=== PATIENT | male | born 1940 | race Caucasian/White ===

== ENCOUNTER 2018-01-10 05:42 | Inpatient (IN) ==
[2017-12-30 09:25] LABS: Apearance,Urine CLEAR (Clear); Bilirubin,Urine Negative (Negative); Blood, Urine Negative (Negative); Glucose,Urine (UA) 50 mg/dL (Negative); Hyaline Casts,Urine 6 /LPF (0-3); Ketones,Urine Negative (Negative); Mucus,Urine Occasional /LPF (Occasional); Nitrite,Urine Negative (Negative); Protein,Urine Negative; RBC,Urine 1 /HPF (0-4); Squamous Epithelial Cell,Urine Occasional /HPF (0-10); Urine Color Yellow (Yellow); Urine Specific Gravity 1.026 (1.001-1.035); Urine Urobilinogen < 2.0 EU/DL (0.2-1.0); WBC,Urine 1 /HPF (0-6)
[2017-12-30 09:26] LABS: Basophils % 0.4 % (0.0-0.8); Eosinophils # 0.2 10*3/uL (0.0-0.87); Eosinophils % 3.9 % (0.00-10.9); Hematocrit 42.8 VOL% (42.0-52.0); Hemoglobin 14.1 GM/DL (14.0-18.0); Immature Granulocytes % 0.4 %; Immature Granulocytes Absolute 0.02 #; Lymphocytes # 1.8 10*3/uL (1.4-4.0); Lymphocytes % 33.5 % (21.2-54.2); Mean Corpuscular HGB Conc 32.9 GM/DL (32-36); Mean Corpuscular Hemoglobin 32 PG (27-34); Mean Corpuscular Volume 97.3 FL (87-102); Mean Platelet Volume 10.7 FL (9.6-12.0); Monocytes # 0.5 10*3/uL (0.11-0.8); Monocytes % 8.8 % (1.7-12.7); Neutrophils # 2.9 10*3/uL (1.4-7.4); Platelet Count 132 T/CUMM (130-400); Red Cell Distribution Width 11.9 % (9.3-17.3); White Blood Count 5.4 T/CUMM (4-12)
[2017-12-30 09:34] LABS: PT Patient Result 10.4 SECS; Partial Thromboplastin Time 25.6 SECS (0-40)
[2017-12-30 09:55] LABS: Albumin 3.6 G/DL (3.4-5.0); Bilirubin,Total 0.6 MG/DL (0.2-1.0); Calcium 9.4 MG/DL (8.5-10.1); Osmolality,Calculated 277.7 MOS/KG (273-304); Potassium 4.3 MMOL/L (3.5-5.1); Total Protein 6.9 G/DL (6.4-8.3)
[2018-01-10] MEDS ORDERED: ACETAMINOPHEN 500 MG TABLET PO ONE (06:00)
[2018-01-10] MEDS ORDERED: VANCOMYCIN INJ 1,000 MG in SODIUM CHLORIDE 0.9% 250 ML IV ONE (06:00)
[2018-01-10] MEDS ORDERED: FAMOTIDINE 20 MG TABLET PO ONE (06:00)
[2018-01-10] MEDS ORDERED: GABAPENTIN 400 MG CAPSULE PO ONE ×2 (06:00→09:54)
[2018-01-10] MEDS ORDERED: CLINDAMYCIN INJ 900 MG in PREMIX 1 EACH IV ONE (06:00)
[2018-01-10] MEDS ORDERED: VANCOMYCIN 1,000 MG VIAL ONE (06:14)
[2018-01-10] MEDS ORDERED: ACETAMINOPHEN 500 MG TABLET ONE (06:15)
[2018-01-10] MEDS ORDERED: FAMOTIDINE 20 MG TABLET ONE (06:15)
[2018-01-10] MEDS ORDERED: GABAPENTIN 400 MG CAPSULE ONE ×2 (06:15→09:48)
[2018-01-10] MEDS ORDERED: CLINDAMYCIN INJ 50 ML IV ONE (06:15)
[2018-01-10] MEDS ORDERED: DIAZEPAM 5 MG TABLET PO ONE (06:30)
[2018-01-10] MEDS: LACTATED RINGERS 1,000 ML IV SCH ×2 (06:30→12:45)
[2018-01-10] MEDS ORDERED: TRANEXAMIC ACID 1,000 MG/10 ML VIAL ONE (06:40)
[2018-01-10] MEDS ORDERED: BUPIVACAINE SPINAL 0.75% 2 ML AMP SPINAL ONE (07:08)
[2018-01-10] MEDS ORDERED: BISACODYL 10 MG SUPP RECTAL PRN (07:25)
[2018-01-10] MEDS ORDERED: PROMETHAZINE 25 MG/1 ML VIAL IM PRN (07:25)
[2018-01-10] MEDS ORDERED: TEMAZEPAM 7.5 MG CAPSULE PO PRN (07:25)
[2018-01-10] MEDS ORDERED: NALOXONE 0.4 MG/ML VIAL IV PRN (07:25)
[2018-01-10] MEDS ORDERED: LACTULOSE 20 GM/30 ML UDCUP PO PRN (07:25)
[2018-01-10] MEDS ORDERED: MORPHINE 4 MG/1 ML VIAL IV PRN (07:25)
[2018-01-10] MEDS ORDERED: diphenhydrAMINE CAP 25 MG CAPSULE PO PRN (07:25)
[2018-01-10] MEDS ORDERED: ONDANSETRON 4 MG/2 ML VIAL IV PRN ×2 (07:25→09:24)
[2018-01-10] MEDS ORDERED: MAGNESIUM HYDROXIDE SUSP 30 ML UDCUP PO PRN (07:25)
[2018-01-10] MEDS ORDERED: TYLENOL ARTHRITIS 650 MG PO PRN (07:30)
[2018-01-10] MEDS ORDERED: ROPIVACAINE 0.5% 30 ML VIAL ONE (07:57)
[2018-01-10] MEDS ORDERED: ACETAMINOPHEN 1,000 MG/100 ML VIAL IV ONE ×2 (08:18→09:20)
[2018-01-10] MEDS ORDERED: SIMVASTATIN 40 MG TABLET PO SCH (09:00)
[2018-01-10] MEDS ORDERED: MORPHINE 10 MG/1 ML VIAL ONE (09:13)
[2018-01-10] MEDS ORDERED: ONDANSETRON 4 MG/2 ML VIAL ONE ×2 (09:14→09:20)
[2018-01-10] MEDS: MORPHINE 10 MG/1 ML VIAL IV PRN ×4 (09:15→09:36)
[2018-01-10] MEDS ORDERED: PROPOFOL 200 MG/20 ML VIAL IV ONE (09:19)
[2018-01-10] MEDS ORDERED: LIDOCAINE 1% 5 ML VIAL ONE (09:19)
[2018-01-10] MEDS ORDERED: SEVOFLURANE 1 UNIT/15 MINUTE INH ONE (09:19)
[2018-01-10] MEDS ORDERED: fentaNYL 100 MCG/2 ML VIAL ONE (09:20)
[2018-01-10] MEDS ORDERED: SODIUM CHLORIDE 0.9% 100 ML IV ONE (09:20)
[2018-01-10] MEDS ORDERED: LACTATED RINGERS 1,000 ML IV ONE (09:20)
[2018-01-10] MEDS ORDERED: MIDAZOLAM 2 MG/2 ML VIAL ONE (09:20)
[2018-01-10] MEDS ORDERED: ePHEDrine 50 MG/ML AMP ONE (09:20)
[2018-01-10] MEDS ORDERED: NIACIN ER 500 MG TABLET PO SCH (10:30)
[2018-01-10] MEDS: ASPIRIN CHEW 81 MG TABLET PO SCH (11:30)
[2018-01-10] MEDS: OMEGA 3 ACID ETHYL ESTERS 1 GM CAPSULE PO SCH (11:30)
[2018-01-10] MEDS: FLUTICASONE 50 MCG NASAL SPRAY 16 GM BOTTLE BOTH NARES SCH (11:30)
[2018-01-10] MEDS: MORPHINE PCA 30 MG/30 ML SYRINGE IV SCH (11:30)
[2018-01-10] MEDS: IRON (CARBONYL) 45 MG TABLET PO SCH (11:30)
[2018-01-10] MEDS: RAMIPRIL 5 MG CAPSULE PO SCH (11:30)
[2018-01-10] MEDS: DOCUSATE SODIUM 100 MG CAPSULE PO SCH ×2 (11:30→20:39)
[2018-01-10] MEDS: MORPHINE 4 MG/1 ML VIAL IV PRN ×2 (12:50→22:42)
[2018-01-10] MEDS: CLINDAMYCIN INJ 900 MG in PREMIX 1 EACH IV SCH ×2 (15:35→22:36)
[2018-01-10] MEDS: FONDAPARINUX 2.5 MG/0.5 ML SYRINGE SUBCUT SCH (17:50)
[2018-01-10] MEDS: MULTIVITAMIN (OCUVITE) TABLET PO SCH (19:59)
[2018-01-10] MEDS: ZALEPLON 5 MG CAPSULE PO SCH (20:38)
[2018-01-10] MEDS: SIMVASTATIN 40 MG TABLET PO SCH (21:37)
[2018-01-10] MEDS: NIACIN ER 500 MG TABLET PO SCH (21:37)
[2018-01-11 05:43] LABS: Basophils % 0.2 % (0.0-0.8); Eosinophils % 0.3 % (0.00-10.9); Hematocrit 35.7 VOL% (42.0-52.0); Hemoglobin 12.3 GM/DL (14.0-18.0); Immature Granulocytes % 0.5 %; Immature Granulocytes Absolute 0.04 #; Lymphocytes # 0.7 10*3/uL (1.4-4.0); Mean Corpuscular HGB Conc 34.5 GM/DL (32-36); Mean Corpuscular Hemoglobin 32 PG (27-34); Mean Corpuscular Volume 93.7 FL (87-102); Mean Platelet Volume 10.6 FL (9.6-12.0); Monocytes % 11.4 % (1.7-12.7); Neutrophils % 79.6 % (38.7-73.9); Platelet Count 146 T/CUMM (130-400); Red Blood Count 3.81 MC/CUMM (3.8-5.5); Red Cell Distribution Width 11.8 % (9.3-17.3); White Blood Count 8.8 T/CUMM (4-12)
[2018-01-11 05:57] LABS: Calcium 8.5 MG/DL (8.5-10.1); Osmolality,Calculated 273.8 MOS/KG (273-304); Potassium 3.8 MMOL/L (3.5-5.1)
[2018-01-11] MEDS: MORPHINE PCA 30 MG/30 ML SYRINGE IV SCH (07:20)
[2018-01-11] MEDS ORDERED: ACETAMINOPHEN 325 MG TABLET PO PRN (07:26)
[2018-01-11] MEDS: MORPHINE 4 MG/1 ML VIAL IV PRN ×2 (09:26→13:23)
[2018-01-11] MEDS: IRON (CARBONYL) 45 MG TABLET PO SCH (09:30)
[2018-01-11] MEDS: DOCUSATE SODIUM 100 MG CAPSULE PO SCH ×2 (09:30→21:09)
[2018-01-11] MEDS: FLUTICASONE 50 MCG NASAL SPRAY 16 GM BOTTLE BOTH NARES SCH (09:30)
[2018-01-11] MEDS: RAMIPRIL 5 MG CAPSULE PO SCH (09:30)
[2018-01-11] MEDS: ASPIRIN CHEW 81 MG TABLET PO SCH (09:30)
[2018-01-11] MEDS: MULTIVITAMIN (OCUVITE) TABLET PO SCH (09:30)
[2018-01-11] MEDS: LACTATED RINGERS 1,000 ML IV SCH (09:30)
[2018-01-11] MEDS: OMEGA 3 ACID ETHYL ESTERS 1 GM CAPSULE PO SCH (09:30)
[2018-01-11] MEDS: FONDAPARINUX 2.5 MG/0.5 ML SYRINGE SUBCUT SCH (17:30)
[2018-01-11] MEDS: SIMVASTATIN 40 MG TABLET PO SCH (21:08)
[2018-01-11] MEDS: ZALEPLON 5 MG CAPSULE PO SCH (21:08)
[2018-01-11] MEDS: NIACIN ER 500 MG TABLET PO SCH (21:08)
[2018-01-12] MEDS: LACTATED RINGERS 1,000 ML IV SCH (05:42)
[2018-01-12] MEDS: IRON (CARBONYL) 45 MG TABLET PO SCH (10:52)
[2018-01-12] MEDS: ASPIRIN CHEW 81 MG TABLET PO SCH (10:53)
[2018-01-12] MEDS: DOCUSATE SODIUM 100 MG CAPSULE PO SCH ×2 (10:53→20:13)
[2018-01-12] MEDS: RAMIPRIL 5 MG CAPSULE PO SCH (10:54)
[2018-01-12] MEDS: MULTIVITAMIN (OCUVITE) TABLET PO SCH (10:54)
[2018-01-12] MEDS: OMEGA 3 ACID ETHYL ESTERS 1 GM CAPSULE PO SCH (10:56)
[2018-01-12] MEDS: FLUTICASONE 50 MCG NASAL SPRAY 16 GM BOTTLE BOTH NARES SCH (10:57)
[2018-01-12] MEDS: FONDAPARINUX 2.5 MG/0.5 ML SYRINGE SUBCUT SCH (17:40)
[2018-01-12] MEDS: SIMVASTATIN 40 MG TABLET PO SCH (20:13)
[2018-01-12] MEDS: ZALEPLON 5 MG CAPSULE PO SCH (20:14)
[2018-01-12] MEDS: NIACIN ER 500 MG TABLET PO SCH (20:14)
[2018-01-13] MEDS: RAMIPRIL 5 MG CAPSULE PO SCH (10:26)
[2018-01-13] MEDS: ASPIRIN CHEW 81 MG TABLET PO SCH (10:26)
[2018-01-13] MEDS: MULTIVITAMIN (OCUVITE) TABLET PO SCH (10:26)
[2018-01-13] MEDS: IRON (CARBONYL) 45 MG TABLET PO SCH (10:26)
[2018-01-13] MEDS: DOCUSATE SODIUM 100 MG CAPSULE PO SCH (10:27)
[2018-01-13] MEDS: OMEGA 3 ACID ETHYL ESTERS 1 GM CAPSULE PO SCH (10:29)
[2018-01-13 11:11] VITALS: BP 94/52
== END 2018-01-13 11:46 | disposition home health service (06) | DRG 470 ==
LOC: N.OR 05:42 → N.SDSINP 05:44 → N.3E 10:10
PROVIDERS: ADMIT Orthopaedic Surgery; ATTEND Orthopaedic Surgery

== ENCOUNTER 2020-09-19 14:24 | Inpatient (IN) ==
[2020-09-19] MEDS ORDERED: LEVOFLOXACIN INJ 750 MG in PREMIX 1 EACH IV STA (15:06)
[2020-09-19] MEDS ORDERED: BISACODYL 5 MG TABLET PO PRN (16:24)
[2020-09-19] MEDS ORDERED: GLUCAGON 1 MG VIAL IM PRN (16:24)
[2020-09-19] MEDS ORDERED: SIMETHICONE CHEW 125 MG TABLET PO PRN (16:24)
[2020-09-19] MEDS ORDERED: ONDANSETRON 4 MG/2 ML VIAL IV PRN (16:24)
[2020-09-19] MEDS ORDERED: ZALEPLON 5 MG CAPSULE PO PRN (16:24)
[2020-09-19] MEDS ORDERED: hydrALAZINE 20 MG/1 ML VIAL IV PRN (16:24)
[2020-09-19] MEDS ORDERED: DEXTROSE 50% 25 GM/50 ML VIAL IV PRN (16:24)
[2020-09-19] MEDS ORDERED: AZITHROMYCIN INJ 500 MG in SODIUM CHLORIDE 0.9% 250 ML IV ONE (16:51)
[2020-09-19 17:05] LABS: Albumin 2.8 G/DL (3.4-5.0); Bilirubin,Total 0.4 MG/DL (0.2-1.0); Calcium 8.5 MG/DL (8.5-10.1); Potassium 3.6 MMOL/L (3.5-5.1); Total Protein 6.7 G/DL (6.4-8.3)
[2020-09-19] MEDS ORDERED: MAGNESIUM SULF RIDER 4 GM in PREMIX 1 EACH IV PRN (17:27)
[2020-09-19] MEDS ORDERED: MAGNESIUM SULF RIDER 2 GM in PREMIX 1 EACH IV PRN (17:27)
[2020-09-19 17:43] LABS: ABG Base Excess 2.1 MMOL/L (-2.5-2.5); ABG HCO3 24.3 MMOL/L (20-26); ABG Oxygen Saturation 93.7 % (95-100); ABG PCO2 31.1 MM HG (35-48); ABG PH 7.511 (7.35-7.45); ABG PO2 67.2 MM HG (80-95); ABG TCO2 25.3 MMOL/L (23-27)
[2020-09-19] MEDS ORDERED: MAGNESIUM SULF RIDER 2 GM in PREMIX 1 EACH IV ONE (17:43)
[2020-09-19 17:46] LABS: Basophils % 0.1 % (0.0-0.8); Hematocrit 41.6 VOL% (42.0-52.0); Immature Granulocytes % 0.7 %; Immature Granulocytes Absolute 0.06 #; Lymphocytes # 0.8 10*3/uL (1.4-4.0); Lymphocytes % 9.8 % (21.2-54.2); Mean Corpuscular HGB Conc 33.7 GM/DL (32-36); Mean Corpuscular Volume 93.5 FL (87-102); Mean Platelet Volume 10.3 FL (9.6-12.0); Monocytes % 1.6 % (1.7-12.7); Neutrophils % 87.8 % (38.7-73.9); Platelet Count 105 T/CUMM (130-400); Red Blood Count 4.45 MC/CUMM (3.8-5.5); Red Cell Distribution Width 11.8 % (9.3-17.3)
[2020-09-19] MEDS: DILTIAZEM INJ 100 MG in SODIUM CHLORIDE 0.9% 100 ML IV SCH (18:40)
[2020-09-19 19:09] LABS: Albumin 2.7 G/DL (3.4-5.0); Bilirubin,Total 0.5 MG/DL (0.2-1.0); Calcium 8.8 MG/DL (8.5-10.1); Osmolality,Calculated 272.2 MOS/KG (273-304); Potassium 3.6 MMOL/L (3.5-5.1); Total Protein 6.7 G/DL (6.4-8.3)
[2020-09-19] MEDS: METOPROLOL SUCCINATE XL 50 MG TABLET PO SCH (19:10)
[2020-09-19 19:24] LABS: ABG Base Excess 2.2 MMOL/L (-2.5-2.5); ABG HCO3 26.2 MMOL/L (20-26); ABG Oxygen Saturation 94.2 % (95-100); ABG PCO2 32.3 MM HG (35-48); ABG PH 7.493 (7.35-7.45); ABG TCO2 21.3 MMOL/L (23-27); Allen Test Positive; Pt O2 Delivery Device Other
[2020-09-19] MEDS: APIXABAN 5 MG TABLET PO SCH (21:16)
[2020-09-19 23:26] LABS: ABG Base Excess 2.1 MMOL/L (-2.5-2.5); ABG HCO3 26.2 MMOL/L (20-26); ABG Oxygen Saturation 96.2 % (95-100); ABG PCO2 31.3 MM HG (35-48); ABG PO2 78.4 MM HG (80-95); ABG TCO2 20.8 MMOL/L (23-27); Allen Test Positive; Pt O2 Delivery Device Other
[2020-09-20] MEDS: LORazepam 2 MG/1 ML VIAL IV PRN (00:12)
[2020-09-20] MEDS: VANCOMYCIN INJ 1,000 MG in SODIUM CHLORIDE 0.9% 250 ML IV SCH ×2 (01:40→14:45)
[2020-09-20] MEDS: AZTREONAM 2,000 MG in SYRINGE 1 EACH IV SCH ×2 (02:50→14:40)
[2020-09-20] MEDS: DILTIAZEM INJ 100 MG in SODIUM CHLORIDE 0.9% 100 ML IV SCH ×2 (05:08→18:35)
[2020-09-20 06:45] LABS: Basophils % 0.1 % (0.0-0.8); Hematocrit 41.4 VOL% (42.0-52.0); Immature Granulocytes % 0.9 %; Immature Granulocytes Absolute 0.08 #; Lymphocytes # 0.7 10*3/uL (1.4-4.0); Lymphocytes % 7.9 % (21.2-54.2); Mean Corpuscular HGB Conc 33.8 GM/DL (32-36); Mean Corpuscular Volume 92.2 FL (87-102); Mean Platelet Volume 10.3 FL (9.6-12.0); Monocytes % 1.6 % (1.7-12.7); Neutrophils % 89.5 % (38.7-73.9); Platelet Count 125 T/CUMM (130-400); Red Blood Count 4.49 MC/CUMM (3.8-5.5); Red Cell Distribution Width 11.5 % (9.3-17.3); White Blood Count 9.2 T/CUMM (4-12)
[2020-09-20 07:04] LABS: Platelet Estimate Normal
[2020-09-20 07:06] LABS: Risk Ratio 2.53; VLDL CHOLESTEROL 18.4 MG/DL
[2020-09-20 07:11] LABS: Albumin 2.6 G/DL (3.4-5.0); Calcium 8.7 MG/DL (8.5-10.1); Potassium 3.3 MMOL/L (3.5-5.1); Total Protein 6.8 G/DL (6.4-8.3)
[2020-09-20 07:50] LABS: Hepatitis B Core IgM Quant 0.05 Index; Hepatitis B Surface Ag Quant < 0.10 Index; Hepatitis B Surface Ag Result Non-Reactive (NonReactive); Hepatitis C Virus Ab Quant 0.06 Index; Hepatitis C Virus Ab Result Non-Reactive (NonReactive)
[2020-09-20] MEDS ORDERED: FUROSEMIDE 40 MG/4 ML VIAL IV ONE (08:31)
[2020-09-20] MEDS ORDERED: SIMVASTATIN 40 MG TABLET PO SCH (09:00)
[2020-09-20] MEDS ORDERED: POTASSIUM CHLORIDE 20 MEQ TABLET PO ONE (09:06)
[2020-09-20] MEDS: METOPROLOL SUCCINATE XL 50 MG TABLET PO SCH ×2 (10:04→21:03)
[2020-09-20] MEDS: ENALAPRIL 10 MG TABLET PO SCH (10:04)
[2020-09-20] MEDS: methylPREDNISolone SOD SUC 40 MG/1 ML VIAL IV SCH ×2 (10:05→17:03)
[2020-09-20] MEDS: APIXABAN 5 MG TABLET PO SCH ×2 (10:05→21:04)
[2020-09-20] MEDS: PANTOPRAZOLE 40 MG TABLET PO SCH (10:05)
[2020-09-20] MEDS ORDERED: ALBUTEROL INHALER 18 GM INH PRN (10:19)
[2020-09-20 11:29] LABS: ABG Base Excess 2.6 MMOL/L (-2.5-2.5); ABG HCO3 26.4 MMOL/L (20-26); ABG Oxygen Saturation 87.6 % (95-100); ABG PCO2 32.8 MM HG (35-48); ABG PH 7.493 (7.35-7.45); ABG PO2 52.1 MM HG (80-95); ABG TCO2 21.2 MMOL/L (23-27)
[2020-09-20] MEDS: FAMOTIDINE 20 MG TABLET PO SCH ×2 (12:25→21:04)
[2020-09-20] MEDS: CHOLECALCIFEROL 1,000 UNIT TABLET PO SCH (12:25)
[2020-09-20] MEDS: ASCORBIC ACID 500 MG TABLET PO SCH ×2 (12:25→21:04)
[2020-09-20] MEDS: CETIRIZINE 10 MG TABLET PO SCH (12:25)
[2020-09-20] MEDS: ZINC GLUCONATE 50 MG TABLET PO SCH (12:25)
[2020-09-20] MEDS: AZITHROMYCIN INJ 250 MG in SODIUM CHLORIDE 0.9% 250 ML IV SCH (17:05)
[2020-09-20] MEDS: ALBUTEROL INHALER 18 GM INH SCH ×2 (17:05→19:02)
[2020-09-20] MEDS ORDERED: LEVOFLOXACIN INJ 750 MG in PREMIX 1 EACH IV SCH (18:00)
[2020-09-21] MEDS: VANCOMYCIN INJ 1,000 MG in SODIUM CHLORIDE 0.9% 250 ML IV SCH ×2 (00:01→12:14)
[2020-09-21] MEDS: LORazepam 2 MG/1 ML VIAL IV PRN ×2 (00:54→07:27)
[2020-09-21] MEDS: methylPREDNISolone SOD SUC 40 MG/1 ML VIAL IV SCH ×3 (01:25→16:16)
[2020-09-21] MEDS: ALBUTEROL INHALER 18 GM INH SCH ×4 (01:25→18:25)
[2020-09-21] MEDS: AZTREONAM 2,000 MG in SYRINGE 1 EACH IV SCH ×2 (02:19→14:23)
[2020-09-21 07:23] LABS: Basophils % 0.1 % (0.0-0.8); Hematocrit 45.9 VOL% (42.0-52.0); Hemoglobin 15.3 GM/DL (14.0-18.0); Immature Granulocytes % 0.9 %; Lymphocytes # 0.4 10*3/uL (1.4-4.0); Lymphocytes % 3.9 % (21.2-54.2); Mean Corpuscular HGB Conc 33.3 GM/DL (32-36); Mean Corpuscular Volume 93.5 FL (87-102); Mean Platelet Volume 10.6 FL (9.6-12.0); Monocytes % 3.1 % (1.7-12.7); Platelet Count 169 T/CUMM (130-400); Red Blood Count 4.91 MC/CUMM (3.8-5.5); Red Cell Distribution Width 11.5 % (9.3-17.3); White Blood Count 10.6 T/CUMM (4-12)
[2020-09-21 07:49] LABS: Band Neutrophils 1 % (0-10); Lymphocytes 7 % (20-55); Platelet Estimate Adequate; Segmented Neutrophils 91 % (50-85); Total Cells Counted 100
[2020-09-21 07:52] LABS: Albumin 2.4 G/DL (3.4-5.0); Bilirubin,Total 0.6 MG/DL (0.2-1.0); Calcium 9.1 MG/DL (8.5-10.1); Osmolality,Calculated 293.5 MOS/KG (273-304); Potassium 3.9 MMOL/L (3.5-5.1); Total Protein 6.8 G/DL (6.4-8.3)
[2020-09-21] MEDS ORDERED: QUEtiapine 25 MG TABLET PO SCH ×2 (09:00→21:00)
[2020-09-21 09:23] LABS: Ferritin 2751.5 ng/ml (26-388)
[2020-09-21] MEDS: CHOLECALCIFEROL 1,000 UNIT TABLET PO SCH (09:23)
[2020-09-21] MEDS: METOPROLOL SUCCINATE XL 50 MG TABLET PO SCH ×2 (09:25→20:47)
[2020-09-21] MEDS: CETIRIZINE 10 MG TABLET PO SCH (09:26)
[2020-09-21] MEDS: PANTOPRAZOLE 40 MG TABLET PO SCH (09:26)
[2020-09-21] MEDS: ZINC GLUCONATE 50 MG TABLET PO SCH (09:26)
[2020-09-21] MEDS: ENALAPRIL 10 MG TABLET PO SCH (09:26)
[2020-09-21] MEDS: FAMOTIDINE 20 MG TABLET PO SCH ×2 (09:26→20:46)
[2020-09-21] MEDS: ASCORBIC ACID 500 MG TABLET PO SCH ×2 (09:26→20:47)
[2020-09-21] MEDS: APIXABAN 5 MG TABLET PO SCH ×2 (09:27→20:46)
[2020-09-21] MEDS: AZITHROMYCIN INJ 250 MG in SODIUM CHLORIDE 0.9% 250 ML IV SCH (16:16)
[2020-09-21] MEDS: DILTIAZEM INJ 100 MG in SODIUM CHLORIDE 0.9% 100 ML IV SCH (17:31)
[2020-09-22] MEDS ORDERED: VANCOMYCIN INJ 1,750 MG in SODIUM CHLORIDE 0.9% 500 ML IV ONE
[2020-09-22] MEDS: methylPREDNISolone SOD SUC 40 MG/1 ML VIAL IV SCH ×3 (01:09→16:25)
[2020-09-22] MEDS: ALBUTEROL INHALER 18 GM INH SCH ×4 (01:10→18:45)
[2020-09-22 01:34] LABS: Basophils % 0.1 % (0.0-0.8); Hematocrit 46.8 VOL% (42.0-52.0); Hemoglobin 15.9 GM/DL (14.0-18.0); Immature Granulocytes % 1.2 %; Immature Granulocytes Absolute 0.18 #; Lymphocytes # 0.4 10*3/uL (1.4-4.0); Lymphocytes % 2.9 % (21.2-54.2); Mean Corpuscular Volume 91.4 FL (87-102); Mean Platelet Volume 10.8 FL (9.6-12.0); Monocytes % 3.6 % (1.7-12.7); Neutrophils % 92.2 % (38.7-73.9); Platelet Count 226 T/CUMM (130-400); Red Blood Count 5.12 MC/CUMM (3.8-5.5); Red Cell Distribution Width 11.5 % (9.3-17.3); White Blood Count 15.4 T/CUMM (4-12)
[2020-09-22] MEDS ORDERED: LORazepam 2 MG/1 ML VIAL IV ONE (01:42)
[2020-09-22 01:56] LABS: Albumin 2.5 G/DL (3.4-5.0); Bilirubin,Total 0.6 MG/DL (0.2-1.0); Calcium 9.1 MG/DL (8.5-10.1); Ferritin 1893.1 ng/ml (26-388); Osmolality,Calculated 303.3 MOS/KG (273-304); Potassium 3.5 MMOL/L (3.5-5.1)
[2020-09-22 02:09] LABS: Lymphocytes 5 % (20-55); Segmented Neutrophils 90 % (50-85); Total Cells Counted 100
[2020-09-22 02:10] LABS: Platelet Estimate Normal
[2020-09-22] MEDS: AZTREONAM 2,000 MG in SYRINGE 1 EACH IV SCH ×2 (03:59→13:55)
[2020-09-22] MEDS: ASCORBIC ACID 500 MG TABLET PO SCH ×2 (09:15→20:32)
[2020-09-22] MEDS: APIXABAN 5 MG TABLET PO SCH (09:15)
[2020-09-22] MEDS: PANTOPRAZOLE 40 MG TABLET PO SCH (09:15)
[2020-09-22] MEDS: FAMOTIDINE 20 MG TABLET PO SCH ×2 (09:15→20:31)
[2020-09-22] MEDS: ENALAPRIL 10 MG TABLET PO SCH (09:15)
[2020-09-22] MEDS: METOPROLOL SUCCINATE XL 50 MG TABLET PO SCH (09:15)
[2020-09-22] MEDS: CHOLECALCIFEROL 1,000 UNIT TABLET PO SCH (09:16)
[2020-09-22] MEDS: CETIRIZINE 10 MG TABLET PO SCH (09:16)
[2020-09-22] MEDS: ZINC GLUCONATE 50 MG TABLET PO SCH (09:16)
[2020-09-22] MEDS: VANCOMYCIN INJ 1,000 MG in SODIUM CHLORIDE 0.9% 250 ML IV SCH (11:52)
[2020-09-22] MEDS ORDERED: SODIUM CHLORIDE 0.9% 250 ML IV ONE (12:20)
[2020-09-22] MEDS ORDERED: QUEtiapine 25 MG TABLET PO SCH (13:34)
[2020-09-22] MEDS: LORazepam 2 MG/1 ML VIAL IV PRN ×3 (13:53→20:31)
[2020-09-22] MEDS ORDERED: METOPROLOL TARTRATE 5 MG/5 ML VIAL IV SCH (16:00)
[2020-09-22] MEDS ORDERED: SODIUM CHLORIDE 0.9% 500 ML IV ONE (16:08)
[2020-09-22] MEDS: AZITHROMYCIN INJ 250 MG in SODIUM CHLORIDE 0.9% 250 ML IV SCH (16:25)
[2020-09-22] MEDS ORDERED: HALOPERIDOL 5 MG/ML AMP IV ONE (17:53)
[2020-09-22] MEDS ORDERED: SODIUM CHLORIDE 0.9% 1,000 ML IV PRN (18:27)
[2020-09-22] MEDS: DILTIAZEM INJ 100 MG in SODIUM CHLORIDE 0.9% 100 ML IV SCH (18:44)
[2020-09-22] MEDS ORDERED: ENOXAPARIN 80 MG/0.8 ML SYRINGE SUBCUT SCH (21:00)
[2020-09-22] MEDS ORDERED: METOPROLOL TARTRATE 5 MG/5 ML VIAL IV ONE (22:04)
[2020-09-22 22:30] LABS: ABG Base Excess 3.2 MMOL/L (-2.5-2.5); ABG HCO3 26.8 MMOL/L (20-26); ABG Oxygen Saturation 78.7 % (95-100); ABG PCO2 38.5 MM HG (35-48); ABG PH 7.455 (7.35-7.45); ABG PO2 46.6 MM HG (80-95); ABG TCO2 23.1 MMOL/L (23-27)
[2020-09-23] MEDS: VANCOMYCIN INJ 1,000 MG in SODIUM CHLORIDE 0.9% 250 ML IV SCH ×3 (00:37→23:47)
[2020-09-23] MEDS: ALBUTEROL INHALER 18 GM INH SCH ×4 (00:37→21:18)
[2020-09-23] MEDS: methylPREDNISolone SOD SUC 40 MG/1 ML VIAL IV SCH ×3 (00:38→17:50)
[2020-09-23] MEDS: LORazepam 2 MG/1 ML VIAL IV PRN ×2 (00:42→21:14)
[2020-09-23] MEDS: AZTREONAM 2,000 MG in SYRINGE 1 EACH IV SCH ×2 (02:50→14:59)
[2020-09-23 05:53] LABS: Basophils # 0.1 10*3/uL (0.0-0.2); Basophils % 0.3 % (0.0-0.8); Eosinophils % 0.2 % (0.00-10.9); Hematocrit 50.2 VOL% (42.0-52.0); Hemoglobin 15.8 GM/DL (14.0-18.0); Immature Granulocytes % 1.9 %; Immature Granulocytes Absolute 0.28 #; Lymphocytes # 0.4 10*3/uL (1.4-4.0); Lymphocytes % 2.5 % (21.2-54.2); Mean Corpuscular HGB Conc 31.5 GM/DL (32-36); Mean Corpuscular Volume 100.4 FL (87-102); Mean Platelet Volume 11.5 FL (9.6-12.0); Monocytes % 4.7 % (1.7-12.7); Neutrophils % 90.4 % (38.7-73.9); Platelet Count 211 T/CUMM (130-400); Red Cell Distribution Width 11.9 % (9.3-17.3)
[2020-09-23 06:07] LABS: Albumin 2.4 G/DL (3.4-5.0); Bilirubin,Total 0.8 MG/DL (0.2-1.0); Ferritin 1266.2 ng/ml (26-388); Potassium 3.8 MMOL/L (3.5-5.1)
[2020-09-23 06:31] LABS: Lymphocytes 2 % (20-55); Segmented Neutrophils 94 % (50-85); Total Cells Counted 100
[2020-09-23 06:32] LABS: Hypochromasia Slight; Microcytosis 1+
[2020-09-23] MEDS ORDERED: QUEtiapine 25 MG TABLET PO SCH (09:00)
[2020-09-23] MEDS: FAMOTIDINE 20 MG TABLET PO SCH ×2 (10:03→21:18)
[2020-09-23] MEDS: CHOLECALCIFEROL 1,000 UNIT TABLET PO SCH (10:04)
[2020-09-23] MEDS: CETIRIZINE 10 MG TABLET PO SCH (10:04)
[2020-09-23] MEDS: ZINC GLUCONATE 50 MG TABLET PO SCH (10:04)
[2020-09-23] MEDS: ENALAPRIL 10 MG TABLET PO SCH (10:04)
[2020-09-23] MEDS: ASCORBIC ACID 500 MG TABLET PO SCH ×2 (10:04→21:17)
[2020-09-23] MEDS: PANTOPRAZOLE 40 MG TABLET PO SCH (10:04)
[2020-09-23] MEDS ORDERED: SODIUM CHLORIDE 0.45% 500 ML IV ONE (11:15)
[2020-09-23] MEDS: ENOXAPARIN 80 MG/0.8 ML SYRINGE SUBCUT SCH ×2 (11:48→22:51)
[2020-09-23] MEDS ORDERED: REMDESIVIR 200 MG in SODIUM CHLORIDE 0.9% 210 ML IV ONE (14:30)
[2020-09-23] MEDS: AZITHROMYCIN INJ 250 MG in SODIUM CHLORIDE 0.9% 250 ML IV SCH (17:50)
[2020-09-23] MEDS: DILTIAZEM INJ 100 MG in SODIUM CHLORIDE 0.9% 100 ML IV SCH (17:51)
[2020-09-23] MEDS: QUEtiapine 25 MG TABLET PO SCH (21:17)
[2020-09-23] MEDS ORDERED: METOPROLOL TARTRATE 5 MG/5 ML VIAL IV ONE (22:19)
[2020-09-24] MEDS: methylPREDNISolone SOD SUC 40 MG/1 ML VIAL IV SCH ×3 (01:10→16:26)
[2020-09-24] MEDS: ALBUTEROL INHALER 18 GM INH SCH ×3 (01:10→13:53)
[2020-09-24] MEDS: DILTIAZEM INJ 100 MG in SODIUM CHLORIDE 0.9% 100 ML IV SCH (01:20)
[2020-09-24] MEDS: AZTREONAM 2,000 MG in SYRINGE 1 EACH IV SCH ×2 (01:43→13:53)
[2020-09-24] MEDS ORDERED: METOPROLOL TARTRATE 5 MG/5 ML VIAL IV PRN (04:17)
[2020-09-24 05:47] LABS: Basophils # 0.1 10*3/uL (0.0-0.2); Basophils % 0.4 % (0.0-0.8); Hematocrit 49.7 VOL% (42.0-52.0); Hemoglobin 15.6 GM/DL (14.0-18.0); Immature Granulocytes % 1.9 %; Lymphocytes # 0.7 10*3/uL (1.4-4.0); Lymphocytes % 4.4 % (21.2-54.2); Mean Corpuscular HGB Conc 31.4 GM/DL (32-36); Mean Platelet Volume 10.7 FL (9.6-12.0); Monocytes % 3.2 % (1.7-12.7); NRBC # 0.02 10*3/uL; Neutrophils % 90.1 % (38.7-73.9); Platelet Count 226 T/CUMM (130-400); Red Blood Count 4.92 MC/CUMM (3.8-5.5); Red Cell Distribution Width 12.2 % (9.3-17.3); White Blood Count 15.8 T/CUMM (4-12)
[2020-09-24 06:07] LABS: Albumin 2.3 G/DL (3.4-5.0); Bilirubin,Total 0.6 MG/DL (0.2-1.0); Calcium 8.9 MG/DL (8.5-10.1); Osmolality,Calculated 347.5 MOS/KG (273-304); Potassium 4.1 MMOL/L (3.5-5.1); Total Protein 6.6 G/DL (6.4-8.3)
[2020-09-24 06:16] LABS: Lymphocytes 3 % (20-55); Platelet Estimate Adequate; Segmented Neutrophils 94 % (50-85); Total Cells Counted 100
[2020-09-24] MEDS: SODIUM CHLORIDE 0.45% 1,000 ML IV SCH ×2 (06:34→15:55)
[2020-09-24] MEDS ORDERED: ACETAMINOPHEN 650 MG SUPP RECTAL PRN (08:09)
[2020-09-24] MEDS: FAMOTIDINE 20 MG TABLET PO SCH (10:06)
[2020-09-24] MEDS: QUEtiapine 25 MG TABLET PO SCH (10:06)
[2020-09-24] MEDS: PANTOPRAZOLE 40 MG TABLET PO SCH (10:06)
[2020-09-24] MEDS: ENALAPRIL 10 MG TABLET PO SCH (10:06)
[2020-09-24] MEDS: ASCORBIC ACID 500 MG TABLET PO SCH (10:07)
[2020-09-24] MEDS: CHOLECALCIFEROL 1,000 UNIT TABLET PO SCH (10:07)
[2020-09-24] MEDS: CETIRIZINE 10 MG TABLET PO SCH (10:07)
[2020-09-24] MEDS: ZINC GLUCONATE 50 MG TABLET PO SCH (10:07)
[2020-09-24] MEDS: REMDESIVIR 100 MG in SODIUM CHLORIDE 0.9% 100 ML IV SCH ×2 (10:07→11:52)
[2020-09-24] MEDS: INSULIN LISPRO 100 UNIT/ML SUBCUT SCH ×2 (11:30→15:55)
[2020-09-24] MEDS: ENOXAPARIN 80 MG/0.8 ML SYRINGE SUBCUT SCH (11:31)
[2020-09-24 11:44] VITALS: BP 47/32
[2020-09-24] MEDS: VANCOMYCIN INJ 1,000 MG in SODIUM CHLORIDE 0.9% 250 ML IV SCH (11:54)
== END 2020-09-24 13:42 | disposition expired | DRG 177 ==
LOC: EDBD → EDUNIT# → N.ED 14:24 → N.EDINP 16:03 → SUATTDRO 16:03 → N.2E 16:55
PROVIDERS: ADMIT Internal Medicine; ATTEND Internal Medicine